=== PATIENT | male | born 1990 | race Caucasian/White ===

== ENCOUNTER 2017-06-27 16:07 | Emergency (ER) | payer SELFPAY ==
[~2017-06-27] VITALS: Ht 167.6 cm; Wt 63.6 kg
[2017-06-27 16:16] VITALS: BP 118/74
== END 2017-06-27 18:37 | disposition left against medical advice (07) ==
LOC: EMS 16:10
DX: Z53.21 Procedure and treatment not carried out due to patient leaving prior to being seen by health care provider (principal)

== ENCOUNTER 2018-06-23 19:38 | Emergency (ER) | payer SELFPAY ==
[~2018-06-23] VITALS: Ht 167.6 cm; Wt 59.1 kg
[2018-06-23] MEDS ORDERED: AZITHROMYCIN 250 MG TABLET PO ONE (21:30)
[2018-06-23] MEDS ORDERED: LIDOCAINE/PF 1% 2 ML VIAL IM ONE (21:30)
[2018-06-23] MEDS ORDERED: CefTRIAXone SODIUM 1 GM/VIAL IM ONE (21:30)
[2018-06-23 21:33] LABS: APPEARANCE,URINE CLEAR (CLEAR); BILIRUBIN,URINE NEGATIVE (NEGATIVE); GLUCOSE, URINE (UA) NEGATIVE (NEGATIVE); KETONES,URINE NEGATIVE (NEGATIVE); LEUKOCYTE ESTERASE ,URINE NEGATIVE (NEGATIVE); NITRATE,URINE NEGATIVE (NEGATIVE); OCCULT BLOOD,URINE NEGATIVE (NEGATIVE); PH,URINE 7.5 (5.0-8.0); PROTEIN,URINE TRACE (NEGATIVE)
[2018-06-23 21:45] VITALS: BP 122/80
== END 2018-06-23 22:21 | disposition home or self-care (01) ==
LOC: EMS 19:39
DX: A56.01 Chlamydial cystitis and urethritis (principal); F15.90 Other stimulant use, unspecified, uncomplicated
CPT/HCPCS: 81003; 96372; 99283; J0696; J3490

== ENCOUNTER 2021-03-12 09:41 | Emergency (ER) | payer SELFPAY ==
[~2021-03-12] VITALS: Ht 167.6 cm; Wt 59.0 kg
[2021-03-12 10:01] VITALS: BP 116/65
[2021-03-12] MEDS ORDERED: PENICILLIN G BENZATHINE LA 2,400,000 UNITS/4 ML SYRINGE IM ONE (11:00)
== END 2021-03-12 11:34 | disposition home or self-care (01) ==
LOC: EMS 09:41
DX: A53.9 Syphilis, unspecified (principal)
CPT/HCPCS: 96372; 99283; J0561